=== PATIENT | male | born 1955 | race African-American/Black ===

== ENCOUNTER 2020-09-21 10:53 | Emergency (ER) | payer OTHER ==
[~2020-09-21] VITALS: Ht 175.3 cm; Wt 86.2 kg
[2020-09-21 11:42] VITALS: BP 177/104
== END 2020-09-21 12:13 | disposition home or self-care (01) ==
LOC: ER 10:53
DX: Z76.0 Encounter for issue of repeat prescription (principal); I10 Essential (primary) hypertension; K21.9 Gastro-esophageal reflux disease without esophagitis